=== PATIENT | male | born 1970 | race Asian ===

== ENCOUNTER 2022-08-02 21:29 | Inpatient (IN) | payer MEDICAID ==
[~2022-08-02] VITALS: Ht 170.2 cm; Wt 86.8 kg
[2022-08-02 22:53] LABS: EOSINOPHILS % (AUTO) 1.8 % (1.0-6.0); HEMATOCRIT 49.8 % (41-53); HEMOGLOBIN 15.1 g/dL (13.5-17.5); LYMPHOCYTES # (AUTO) 1.6 K/uL (1.0-4.8); LYMPHOCYTES % (AUTO) 22.1 % (22.0-44.0); MEAN CORPUSCULAR HEMOGLOBIN 21.4 pg (26.0-34.0); MEAN CORPUSCULAR HGB CONC 30.2 G/dL (31.0-37.0); MEAN CORPUSCULAR VOLUME 71 fL (80-100); MONOCYTES # (AUTO) 0.8 K/uL (0.1-1.0); MONOCYTES % (AUTO) 10.7 % (2.0-9.0); NEUTROPHILS # (AUTO) 4.8 K/uL (1.8-7.7); NEUTROPHILS % (AUTO) 64.4 % (40.0-70.0); PLATELET COUNT (AUTO) 223 K/uL (150-450); RED BLOOD CELL COUNT(AUTO) 7.04 MIL/uL (4.50-5.90); RED CELL DISTRIBUTION WIDTH 15.6 % (11.5-14.5)
[2022-08-02] MEDS ORDERED: LORazepam 2 MG TABLET PO PRN (23:00)
[2022-08-02] MEDS ORDERED: HALOPERIDOL 5 MG TABLET PO PRN (23:00)
[2022-08-02] MEDS ORDERED: ZOLPIDEM TARTRATE 10 MG TABLET PO PRN (23:00)
[2022-08-02 23:08] LABS: ALANINE AMINOTRANSFERASE 37 U/L (12-78); ALBUMIN 3.9 g/dL (3.4-5.0); ALKALINE PHOSPHATASE 109 U/L (46-116); ANION GAP 4 mmol/L (8-16); ASPARTATE AMINOTRANSFERASE 13 U/L (15-37); BILIRUBIN,TOTAL 0.3 mg/dL (0.1-1.0); CALCIUM, TOTAL 9.5 mg/dL (8.8-10.5); CARBON DIOXIDE 30 mmol/L (22-29); CHLORIDE 96 mmol/L (98-107); CREATININE 1.24 mg/dL (0.60-1.30); GLOMERULAR FILTR. RATE CALC > 60 mL/min (>60); SODIUM SERUM 130 mmol/L (136-145); TOTAL PROTEIN, SERUM 7.9 g/dL (6.4-8.2); UREA NITROGEN, BLOOD 17 mg/dL (7-18)
[2022-08-02 23:09] LABS: GLUCOSE,RANDOM 647 mg/dL (70-110)
[2022-08-02] MEDS ORDERED: SODIUM CHLORIDE 0.9% 1,000 ML IV ONE (23:15)
[2022-08-02] MEDS ORDERED: INSULIN REGULAR, HUMAN 100 UNITS/ML IVP ONE (23:15)
[2022-08-02] MEDS ORDERED: LISI-893 PO (23:41)
[2022-08-02] MEDS ORDERED: METF-1211 PO (23:41)
[2022-08-03 00:18] LABS: APPEARANCE,URINE CLEAR (CLEAR); BILIRUBIN,URINE NEGATIVE (NEGATIVE); GLUCOSE, URINE (UA) >=1000 mg/dL (NEGATIVE); KETONES,URINE NEGATIVE (NEGATIVE); LEUKOCYTE ESTERASE ,URINE NEGATIVE (NEGATIVE); NITRATE,URINE NEGATIVE (NEGATIVE); OCCULT BLOOD,URINE NEGATIVE (NEGATIVE); PROTEIN,URINE NEGATIVE (NEGATIVE); SPECIFIC GRAVITIY, URINE 1.033 (1.003-1.030); UROBILINOGEN,URINE <=1.0 mg/dL (<=1.0)
[2022-08-03 00:25] LABS: AMPHET/METH SCREEN,URINE NEGATIVE (NEGATIVE); BARBITURATE SCREEN, URINE NEGATIVE (NEGATIVE); BENZODIAZEPINES SCREEN,URINE NEGATIVE (NEGATIVE); CANNABINOID SCREEN,URINE NEGATIVE (NEGATIVE); COCAINE SCREEN,URINE NEGATIVE (NEGATIVE); METHADONE SCREEN, URINE NEGATIVE (NEGATIVE); OPIATE SCREEN,URINE NEGATIVE (NEGATIVE)
[2022-08-03 00:26] LABS: PHENCYCLIDINE SCREEN,URINE NEGATIVE (NEGATIVE)
[2022-08-03 00:31] LABS: BACTERIA,URINE None Seen /HPF (None Seen); RBC,URINE None Seen /HPF (0-2); WBC,URINE None Seen /HPF (0-5)
[2022-08-03 00:41] LABS: COVID AG,FIA SOURCE NASOPHARYNGEAL
[2022-08-03] MEDS ORDERED: SODIUM CHLORIDE 0.9% 1,000 ML IV ONE (01:00)
[2022-08-03] MEDS ORDERED: MetFORMIN HCL 500 MG TABLET PO ONE (01:00)
[2022-08-03 01:01] LABS: GLUCOSE,POINT OF CARE 353 MG/DL (70-110)
[2022-08-03 03:36] LABS: GLUCOSE,POINT OF CARE 282 MG/DL (70-110)
[2022-08-03 10:45] VITALS: BP 144/95
[2022-08-03 10:46] LABS: GLUCOMETER DEV NAME(LOC) 3E.C; GLUCOSE,POINT OF CARE 221 MG/DL (70-110)
[2022-08-03] MEDS ORDERED: DEXTROSE 50%-WATER 25 GM/50 ML SYRINGE IVP PRN ×2 (11:30→13:00)
[2022-08-03] MEDS: INSULIN LISPRO 100 UNITS/ML SQ PRN ×3 (12:15→21:21)
[2022-08-03 16:31] LABS: GLUCOMETER DEV NAME(LOC) 3E.C; GLUCOSE,POINT OF CARE 252 MG/DL (70-110)
[2022-08-03 16:39] VITALS: BP 142/98
[2022-08-03] MEDS: MetFORMIN HCL 500 MG TABLET PO SCH (17:29)
[2022-08-03 20:22] LABS: GLUCOMETER DEV NAME(LOC) 3E.C; GLUCOSE,POINT OF CARE 259 MG/DL (70-110)
[2022-08-04 06:31] LABS: GLUCOMETER DEV NAME(LOC) 3E.C; GLUCOSE,POINT OF CARE 210 MG/DL (70-110)
[2022-08-04] MEDS: MetFORMIN HCL 500 MG TABLET PO SCH ×2 (06:44→17:09)
[2022-08-04] MEDS: INSULIN LISPRO 100 UNITS/ML SQ PRN ×3 (06:46→17:25)
[2022-08-04] MEDS: LISINOPRIL 10 MG TABLET PO SCH (08:33)
[2022-08-04 09:11] VITALS: BP 136/90
[2022-08-04 11:37] LABS: GLUCOMETER DEV NAME(LOC) 3E.C; GLUCOSE,POINT OF CARE 276 MG/DL (70-110)
[2022-08-04] MEDS ORDERED: GuaiFENesin/D-METHORPHAN [SUGAR-FREE] 200-20MG/10 ML SYRUP UDCUP PO PRN (15:45)
[2022-08-04] MEDS ORDERED: LOPERAMIDE HCL 2 MG CAPSULE PO PRN (15:45)
[2022-08-04] MEDS ORDERED: NICOTINE 14 MG/24 HOUR PATCH TD PRN (15:45)
[2022-08-04] MEDS ORDERED: CloNIDine HCL 0.1 MG TABLET PO PRN (15:45)
[2022-08-04] MEDS ORDERED: DOCUSATE SODIUM 100 MG CAPSULE PO PRN (15:45)
[2022-08-04] MEDS ORDERED: ALBUTEROL SULFATE HFA 90 MCG/PUFF 8 GM INHALER IH PRN (15:45)
[2022-08-04] MEDS ORDERED: ONDANSETRON HCL 4 MG TABLET PO PRN (15:45)
[2022-08-04] MEDS ORDERED: ACETAMINOPHEN 325 MG TABLET PO PRN (15:45)
[2022-08-04] MEDS ORDERED: IBUPROFEN 400 MG TABLET PO PRN (15:45)
[2022-08-04] MEDS ORDERED: MAGNESIUM HYDROXIDE SUSPENSION 30 ML UDCUP PO PRN (15:45)
[2022-08-04] MEDS ORDERED: MAG HYDROX/AL HYDROX/SIMETH ES 30 ML SUSPENSION UDCUP PO PRN (15:45)
[2022-08-04] MEDS ORDERED: PETROLATUM,WHITE 28 GM JELLY TP PRN (15:45)
[2022-08-04 16:06] VITALS: BP 135/78
[2022-08-04 17:36] LABS: GLUCOMETER DEV NAME(LOC) 3E.C; GLUCOSE,POINT OF CARE 288 MG/DL (70-110)
[2022-08-04 20:51] LABS: GLUCOMETER DEV NAME(LOC) 3E.C; GLUCOSE,POINT OF CARE 237 MG/DL (70-110)
[2022-08-05 06:51] LABS: GLUCOMETER DEV NAME(LOC) 3E.C; GLUCOSE,POINT OF CARE 223 MG/DL (70-110)
[2022-08-05] MEDS: MetFORMIN HCL 500 MG TABLET PO SCH ×2 (06:58→17:33)
[2022-08-05] MEDS: INSULIN LISPRO 100 UNITS/ML SQ PRN ×3 (07:02→21:01)
[2022-08-05] MEDS: LISINOPRIL 10 MG TABLET PO SCH (08:41)
[2022-08-05 09:31] VITALS: BP 150/83
[2022-08-05] MEDS ORDERED: LISI-893 PO (09:35)
[2022-08-05] MEDS ORDERED: METF-1211 PO (09:35)
[2022-08-05 12:06] LABS: GLUCOMETER DEV NAME(LOC) 3E.C; GLUCOSE,POINT OF CARE 219 MG/DL (70-110)
[2022-08-05 16:00] VITALS: BP 114/74
[2022-08-05 17:26] LABS: GLUCOMETER DEV NAME(LOC) 3E.C; GLUCOSE,POINT OF CARE 224 MG/DL (70-110)
[2022-08-05 20:25] LABS: GLUCOMETER DEV NAME(LOC) 3E.C; GLUCOSE,POINT OF CARE 304 MG/DL (70-110)
[2022-08-06 06:46] LABS: GLUCOMETER DEV NAME(LOC) 3E.C; GLUCOSE,POINT OF CARE 200 MG/DL (70-110)
[2022-08-06] MEDS: MetFORMIN HCL 500 MG TABLET PO SCH (06:55)
[2022-08-06] MEDS: INSULIN LISPRO 100 UNITS/ML SQ PRN ×2 (07:03→11:57)
[2022-08-06] MEDS: LISINOPRIL 10 MG TABLET PO SCH (08:01)
[2022-08-06 09:17] VITALS: BP 110/76
[2022-08-06 11:46] LABS: GLUCOMETER DEV NAME(LOC) 3E.C; GLUCOSE,POINT OF CARE 262 MG/DL (70-110)
== END 2022-08-06 12:40 | disposition home or self-care (01) | DRG 750 ==
LOC: EMS 21:33 → 3EC 08-03 08:37
PROVIDERS: ADMIT Psychiatry & Neurology Child & Adolescent Psychiatry; ATTEND Psychiatry & Neurology Child & Adolescent Psychiatry
DX: F20.9 Schizophrenia, unspecified (principal); E87.1 Hypo-osmolality and hyponatremia; E11.65 Type 2 diabetes mellitus with hyperglycemia; E78.5 Hyperlipidemia, unspecified; Z20.822 Contact with and (suspected) exposure to COVID-19; G47.00 Insomnia, unspecified; I10 Essential (primary) hypertension; F17.210 Nicotine dependence, cigarettes, uncomplicated; Z91.14 Patient's other noncompliance with medication regimen
CPT/HCPCS: 80053; 81001; 81003; 82962; 85025; 99285; G0480; J1815; J7030